=== PATIENT | female | born 2000 | race Caucasian/White ===

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

== ENCOUNTER 2020-01-12 10:39 | Outpatient (CLI) | payer BC, SELFPAY ==
--- NOTE | ~2020-01-12 | MR_ITS ---
EXAMINATION: MR knee RT wo con DATE: 01/12/2020 11:43 INDICATION: Right knee pain. TECHNIQUE: Magnetic resonance imaging (MRI) of the right knee was performed without intravenous contr ast. Sequences included axial PD-weighted FS FSE, coronal PD-weighted FSE and PD-weighted FS FSE, sag ittal PD-weighted FSE, and sagittal T2-weighted FS FSE. COMPARISON: Right knee radiographs 01/10/2020 FINDINGS: Medial compartment: Medial meniscus is normal. There is shallow partial-thickness cartilage loss of femoral condyle invol ving the central articular surface. There is cartilage surface irregularity of tibial condyle. Lateral compartment: Lateral meniscus is normal. Lateral compartment cartilage is normal. Patellofemoral compartment: There is deep cartilage fissuring of patellar medial facet. There is cartilage surface irregularity o f patellar lateral facet. There is cartilage surface irregularity of central trochlea. Ligaments and tendons: Anterior and posterior cruciate ligaments are normal. Medial collateral ligament and lateral collater al ligament complex are normal. The patellar tendon is normal. Fluid: There is no knee joint effusion. IMPRESSION: 1. Mild chondrosis of medial and patellofemoral compartments. Reviewed, dictated and finalized at location A.
== END 2020-01-12 10:40 | disposition home or self-care (01) ==
PROVIDERS: PCP Family Medicine; Visit Provider Nurse Practitioner Family
DX: M25.561 Pain in right knee (principal)
CPT/HCPCS: 73721

== ENCOUNTER 2020-09-28 13:45 | Outpatient (CLI) | payer BC, SELFPAY ==
[2020-09-28 14:31] LABS: Basophils Absolute Auto 0.1 K/mm3 (0.0-0.1); Basophils Percent Auto 0.6 % (0.2-1.2); Eosinophils Absolute Auto 0.1 K/mm3 (0-0.3); Eosinophils Percent Auto 1.2 % (0-4.4); Hemoglobin 11.4 g/dL (12.0-15.0); Immature Granulocyte Absolute 0.04 K/mm3 (0.00-0.031); Immature Granulocyte Percent A 0.4 % (0-0.5); Lymphocytes Absolute Auto 2.84 K/mm3 (0.9-3.2); Lymphocytes Percent Auto 27.2 % (18.3-44.2); Mean Corpuscular Hemoglobin 22.9 pg (26-34); Mean Corpuscular Volume 76.5 fl (80-100); Mean Platelet Volume 10.2 fl (7.4-10.4); Monocytes Absolute Auto 0.6 K/mm3 (0.1-0.6); Neutrophils Absolute Auto 6.7 K/mm3 (1.3-6.7); Neutrophils Percent Auto 64.6 % (45.5-73.1); Platelet Count Result 533 k/mm3 (150-375); Red Blood Count 4.97 M/mm3 (4.2-5.4); Red Cell Distribution Width 15.8 % (11.5-14.5); White Blood Count 10.4 K/mm3 (4.5-10.0)
[2020-09-28 14:32] LABS: Alanine Aminotransferase 23 U/L (4-35); Albumin Level 4.7 g/dL (3.5-5.1); Alkaline Phosphatase 94 U/L (38-126); Anion Gap 11 mmol/L (8-16); Aspartate Amino Transferase 28 U/L (14-36); Bilirubin,Total 0.3 mg/dL (0.2-1.3); Blood Urea Nitrogen 6 mg/dL (7-17); Calcium 9.5 mg/dL (8.4-10.2); Carbon Dioxide 26 mmol/L (22-30); Chloride 103 mmol/L (98-107); Estimated Glomerular Filt Rate > 60; Glucose 96 mg/dL (65-105); Potassium 4.1 mmol/L (3.4-5.0); Sodium 140 mmol/L (137-145)
[2020-09-28 14:39] LABS: Hemoglobin A1C 5.4 % (<5.7)
[2020-09-28 16:07] LABS: Erythrocyte Sedimentation Rate 22 mm/hr (0-20)
[2020-10-03 13:01] LABS: ANA Cascade Screen Negative (Negative)
== END 2020-09-28 13:46 | disposition home or self-care (01) ==
LOC: ANHLAB 13:48
PROVIDERS: PCP Family Medicine; Visit Provider Family Medicine
DX: M25.469 Effusion, unspecified knee (principal); R63.5 Abnormal weight gain
CPT/HCPCS: 36415; 80053; 83036; 84443; 84550; 85025; 85652; 86038

== ENCOUNTER 2020-10-09 11:44 | Outpatient (CLI) | payer BC, SELFPAY ==
[2020-10-09 12:12] LABS: Basophils Percent Auto 0.4 % (0.2-1.2); Eosinophils Absolute Auto 0.1 K/mm3 (0-0.3); Eosinophils Percent Auto 0.9 % (0-4.4); Hematocrit 36.2 % (37.0-47.0); Immature Granulocyte Absolute 0.04 K/mm3 (0.00-0.031); Immature Granulocyte Percent A 0.4 % (0-0.5); Lymphocytes Percent Auto 25.4 % (18.3-44.2); Mean Corpuscular HGB Conc 30.4 g/dl (32-36); Mean Corpuscular Volume 75.7 fl (80-100); Mean Platelet Volume 10.3 fl (7.4-10.4); Monocytes Absolute Auto 0.6 K/mm3 (0.1-0.6); Monocytes Percent Auto 6.8 % (2.6-8.5); Neutrophils Percent Auto 66.1 % (45.5-73.1); Platelet Count Result 433 k/mm3 (150-375); Red Blood Count 4.78 M/mm3 (4.2-5.4); Red Cell Distribution Width 15.7 % (11.5-14.5); White Blood Count 9.1 K/mm3 (4.5-10.0)
== END 2020-10-09 11:45 | disposition home or self-care (01) ==
PROVIDERS: PCP Family Medicine; Visit Provider Physician Assistant
DX: D72.829 Elevated white blood cell count, unspecified (principal)
CPT/HCPCS: 36415; 85025

== ENCOUNTER 2020-11-21 11:35 | Outpatient (CLI) | payer BC, SELFPAY ==
--- NOTE | ~2020-11-21 | XR_ITS ---
XR hip LT 2V w AP pelvis DATE: 11/21/2020 12:06 INDICATION: Left hip pain TECHNIQUE: AP pelvis. AP and lateral views of left hip. COMPARISON: 09/09/2015 left hip FINDINGS: No pelvic fracture or bone destruction. Normal alignment at the pubic symphysis and sacral iliac joints. Hip joint spaces appear symmetric and well preserved. No fracture, dislocation, avascular necrosis or bone destruction of the left hip. IMPRESSION: Negative Reviewed, dictated and finalized at location B. IMPRESSION: Negative
--- NOTE | ~2020-11-21 | XR_ITS ---
XR femur LT min 2V DATE: 11/21/2020 12:07 INDICATION: Left leg pain TECHNIQUE: AP and lateral views of the left femur COMPARISON: None FINDINGS: No fracture or dislocation, periosteal reaction or bone destruction. Normal alignment at th e hip and knee joints. IMPRESSION: Negative examination Reviewed, dictated and finalized at location B. IMPRESSION: Negative examination
== END 2020-11-21 11:36 | disposition home or self-care (01) ==
LOC: ANHIMG 11:36
PROVIDERS: PCP Family Medicine; Visit Provider Family Medicine
DX: M89.8X5 Other specified disorders of bone, thigh (principal)
CPT/HCPCS: 73502; 73552

== ENCOUNTER 2021-05-18 14:08 | Emergency (ER) | payer BC, SELFPAY ==
--- NOTE | ~2021-05-18 | XR_ITS ---
XR foot RT min 3V DATE: 05/18/2021 14:25 INDICATION: Fifth metatarsal pain beginning last evening after running TECHNIQUE: 4 views COMPARISON: None FINDINGS: No fracture or dislocation, periosteal reaction or bone destruction. Incorporated os tibiale externum, normal variant. IMPRESSION: No fracture Reviewed, dictated and finalized at location A. SHOW ENTERTAINER IMPRESSION: No fracture
[2021-05-18 14:14] VITALS: BP 134/83; PULSE 67; RESP 12; TEMP 36.7; O2SAT 100
--- NOTE | 2021-05-18 14:33 | ED.GENADULT ---
HPI - General Adult General Chief complaint: Extremity Injury, Lower Stated complaint: rt foot inj Source: patient Mode of arrival: ambulatory Limitations: no limitations History of Present Illness HPI narrative: Pt presents for evaluation of right foot pain. Symptom onset yesterday. She started exercising again about one week ago after she got a treadmill. She has been running on a daily basis. She reports pain on the lateral aspect of her foot. Pain is constant, 5/10, without descriptive quality. Pain is worse with weight bearing and palpation. She took ibuprofen last night for her symptoms. She went to sleep so she is not certain whether it was effective. No paresthesias. No other concerns. Related Data Allergies Allergy/AdvReac Type Severity Reaction Status Date / Time lactose Allergy Unknown Diarrhea Verified 05/18/21 14:13 Review of Systems Review of Systems: CONSTITUTIONAL: Denies fever, chills, or sweats. EYES: Denies visual changes, redness, or discharge. ENT: Denies rhinorrhea, congestion, sore throat, or otalgia. CARDIOVASCULAR: Denies chest pain, palpitations, or edema. RESPIRATORY: Denies cough or dyspnea. GASTROINTESTINAL: Denies abdominal pain, nausea, vomiting, or diarrhea. GENITOURINARY: Denies dysuria or hematuria. SKIN: Denies rash or itching. MUSCULOSKELETAL: Reports right foot pain. Denies pain otherwise. NEUROLOGIC: Denies headache, numbness, dizziness, or weakness. PSYCHIATRIC: Denies anxiety or depression. [facility] [place] Past Medical History Medical History Anxiety and depression Chondromalacia Right knee injury Seasonal allergies Surgical History Surgical History History of elbow surgery tennis elbow Family History Family History Mother Patient's mother is in good health Sibling Patient's sister is in good health Patient's brother is in good health Father Diabetes mellitus Hypertension Other Heart disease Malignant neoplasm Social History Social History Social History: Single Smoking status: Never smoker Second hand tobacco smoke exposure: No Alcohol intake: never Substance use: never Substance use type: does not use Gender identity (if verbalized by the patient): Female Sexual Orientation (if Verbalized by the Patient): Straight or Heterosexual Exam Narrative: GENERAL: Well-appearing, well-nourished, and in no acute distress. HEAD: Normocephalic, atraumatic. EYES: PERRLA and EOMI. ENT: Nares clear, no rhinorrhea or epistaxis. Mucous membranes moist. Oropharynx without tonsillar hypertrophy exudate or other lesions. Bilateral TMs pearly fregoso nonbulging NECK: Supple. No adenopathy or masses. No carotid bruits or JVD CHEST: Clear to auscultation. No respiratory distress. No wheezes rales or rhonchi HEART: Regular rate and rhythm. No murmur heard. Normal peripheral pulses. ABDOMEN: Soft, nontender, nondistended, normal active bowel sounds. EXTREMITIES:Tenderness over 5th metatarsal of right foot without any significant swelling. Normal range of motion. SKIN: Warm, dry, no rash. NEURO: No focal deficits. Alert and oriented x3. PSYCH: Normal mood and affect. Course Course Emergency Course: This is a 21-year-old female who presented with right foot pain. X ray was negative for fracture. Advised on RICE therapy. She should follow up to ensure interval improvement in her symptoms. If symptoms persist, CT is possibility to ensure no occult fracture. Offered analgesics upon discharge which she declined. Provided with post-op shoe. She should return for worsening symptoms. Patient agreed with plan of care. Level of Care: Express Care Visit Vital Signs Vital signs: Vital Signs Temperature 36.7 C 05/18/21 14:14
== END 2021-05-18 14:48 | disposition home or self-care (01) ==
PROVIDERS: Emergency Provider Nurse Practitioner; PCP Family Medicine
DX: S90.31XA Contusion of right foot, initial encounter (principal); X58.XXXA Exposure to other specified factors, initial encounter; F41.9 Anxiety disorder, unspecified; F32.9 Major depressive disorder, single episode, unspecified
CPT/HCPCS: 73630; 99213; G0463

== ENCOUNTER 2022-02-20 14:20 | Emergency (ER) | payer BC, SELFPAY ==
--- NOTE | ~2022-02-20 | XR_ITS ---
EXAMINATION: XR hand RT min 3V DATE: 02/20/2022 14:40 INDICATION: Pain at the fifth metacarpal 4 weeks post dogbite TECHNIQUE: Posteroanterior, oblique and lateral views of the right hand were obtained. COMPARISON: None. FINDINGS: Alignment is normal. No fracture. Joint spaces are normal. No cortical erosions or periosteal reactio n. No radiopaque foreign bodies. Soft tissues are unremarkable. IMPRESSION: 1. Negative right hand radiographs. Reviewed, dictated and finalized at location B.
[2022-02-20 14:30] VITALS: BP 162/87; PULSE 80; RESP 16; TEMP 37.1; O2SAT 100
[2022-02-20 14:32] VITALS: BP 162/87; PULSE 80; RESP 16; TEMP 37.1; O2SAT 100
--- NOTE | 2022-02-20 15:08 | ED.UPPEXIN ---
HPI - Extremity Injury (Upper) General Chief Complaint: Extremity Injury, Upper Stated Complaint: injury to right hand Time Seen by Provider: 02/20/22 15:03 Source: patient Mode of arrival: ambulatory Limitations: no limitations History of Present Illness HPI narrative: Patient presents today with an injury to her right hand. States her dog bit her hand 4 weeks ago over the 5th metacarpal and she has been having pain ever since. It never broke the skin. Denies numbness or tingling in the hand or fingers. She currently rates her pain 5/10 and has been taking ibuprofen without relief. Related Data Allergies Allergy/AdvReac Type Severity Reaction Status Date / Time lactose Allergy Unknown Diarrhea Verified 02/20/22 14:31 Review of Systems Review of Systems: CONSTITUTIONAL: Denies body aches, fever, chills, or sweats. EYES: Denies visual changes, redness, or discharge. ENT: Denies rhinorrhea, congestion, sore throat, or otalgia. CARDIOVASCULAR: Denies chest pain, palpitations, or edema. RESPIRATORY: Denies cough or dyspnea. GASTROINTESTINAL: Denies abdominal pain, nausea, vomiting, or diarrhea. GENITOURINARY: Denies dysuria or hematuria. SKIN: Denies rash, itching, or wounds. MUSCULOSKELETAL: Denies back pain, or myalgia.+ Right hand injury NEUROLOGIC: Denies headache, numbness, tingling, or weakness. PSYCH: Denies depression or anxiety. [facility] Past Medical History Medical History Anxiety and depression Chondromalacia Right knee injury Seasonal allergies Surgical History Surgical History History of elbow surgery tennis elbow Family History Family History Mother Patient's mother is in good health Sibling Patient's sister is in good health Patient's brother is in good health Father Diabetes mellitus Hypertension Other Heart disease Malignant neoplasm Social History Social History Social History: Single Smoking status: Never smoker Second hand tobacco smoke exposure: No Alcohol intake: never Substance use: never Substance use type: does not use Gender identity (if verbalized by the patient): Female Sexual Orientation (if Verbalized by the Patient): Straight or Heterosexual Comments At time of signature, I have reviewed and agree with nursing past medical, surgical, social and family history unless otherwise noted. Please see nursing chart for further information. There is no relevant family history pertinent to the presenting complaint Exam Narrative: GENERAL: Well-appearing, well-nourished, and in no acute distress. HEAD: Normocephalic, atraumatic. EYES: EOMI. No redness or drainage. Conjunctivae normal. ENT: Mucous membranes pink and moist. NECK: Normal AROM. CHEST: No respiratory distress. EXTREMITIES: right hand: Tenderness over the right MCP extending to the right metacarpal. No edema, ecchymosis, or erythema noted. Distal sensation intact. Capillary refill normal. Full range of motion of the 5th finger with increased pain in the MCP. Pain in the metacarpal with flexion of the wrist. SKIN: Warm, dry, no rash. Capillary refill normal. Normal skin turgor. NEURO: No focal deficits. Alert and oriented x3. Gait steady. PSYCH: Normal affect. No signs of depression or anxiety. Course Course Level of Care: Express Care Visit Vital Signs Vital signs: Vital Signs Temperature 98.8 F 02/20/22 14:30 Pulse Rate 80 02/20/22 14:30 Respiratory Rate 16 02/20/22 14:30 Blood Pressure 162/87 H 02/20/22 14:30 Pulse Oximetry 100 02/20/22 14:30 Temperature 98.8 F 02/20/22 14:32 Pulse Rate 80 02/20/22 14:32 Respiratory Rate 16 02/20/22 14:32 Blood Pressure 162/87 H 02/20/22 14:32 Pulse Oximetry 100
== END 2022-02-20 15:16 | disposition home or self-care (01) ==
PROVIDERS: Emergency Provider Nurse Practitioner; PCP Family Medicine
DX: S69.91XA Unspecified injury of right wrist, hand and finger(s), initial encounter (principal); W54.0XXA Bitten by dog, initial encounter
CPT/HCPCS: 73130; 99213; G0463

== ENCOUNTER 2022-10-02 09:45 | Outpatient (CLI) | payer BC, SELFPAY ==
[2022-10-02 10:18] LABS: Basophils Absolute Auto 0.1 K/mm3 (0.0-0.1); Basophils Percent Auto 0.7 % (0.2-1.2); Eosinophils Absolute Auto 0.2 K/mm3 (0-0.3); Eosinophils Percent Auto 1.6 % (0-4.4); Hematocrit 38.2 % (37.0-47.0); Immature Granulocyte Absolute 0.07 K/mm3 (0.00-0.031); Immature Granulocyte Percent A 0.7 % (0-0.5); Lymphocytes Absolute Auto 2.23 K/mm3 (0.9-3.2); Lymphocytes Percent Auto 23.2 % (18.3-44.2); Mean Corpuscular HGB Conc 31.4 g/dl (32-36); Mean Corpuscular Hemoglobin 25.9 pg (26-34); Mean Corpuscular Volume 82.5 fl (80-100); Mean Platelet Volume 10.5 fl (7.4-10.4); Monocytes Absolute Auto 0.6 K/mm3 (0.1-0.6); Monocytes Percent Auto 5.7 % (2.6-8.5); Neutrophils Absolute Auto 6.5 K/mm3 (1.3-6.7); Neutrophils Percent Auto 68.1 % (45.5-73.1); Platelet Count Result 413 k/mm3 (150-375); Red Blood Count 4.63 M/mm3 (4.2-5.4); Red Cell Distribution Width 14.4 % (11.5-14.5); White Blood Count 9.6 K/mm3 (4.5-10.0)
[2022-10-06 11:01] LABS: DHEA-Sulfate 237 mcg/dL (18-391)
[2022-10-08 12:11] LABS: Testosterone Free 4.3 pg/mL (0.1-6.4); Testosterone Total 25 ng/dL (2-45)
[2022-10-08 14:51] LABS: FSH 8.5 mIU/mL (***); Progesterone 7.1 ng/mL (***); Prolactin 18.8 ng/mL (***)
[2022-10-11 22:06] LABS: Estradiol, Ultrasensitive 94 pg/mL
== END 2022-10-02 09:46 | disposition home or self-care (01) ==
PROVIDERS: PCP Family Medicine; Visit Provider Obstetrics & Gynecology
DX: N92.0 Excessive and frequent menstruation with regular cycle (principal); D64.9 Anemia, unspecified
CPT/HCPCS: 36415; 82627; 82670; 83001; 83498; 84144; 84146; 84402; 84403; 85025

== ENCOUNTER 2023-03-15 14:15 | Emergency (ER) | payer OTHER, SELFPAY ==
[2023-03-15 14:23] VITALS: BP 142/72; PULSE 111; RESP 16; TEMP 37.1; O2SAT 100
--- NOTE | 2023-03-15 14:32 | ED.GENADULT ---
HPI - General Adult General Chief complaint: Upper Respiratory Infection Stated complaint: Sore Throat Time Seen by Provider: 03/15/23 14:31 Source: patient, RN notes reviewed and old records reviewed Mode of arrival: ambulatory Limitations: no limitations History of Present Illness HPI narrative: 22-year-old female presents to [facility] with complaint of sore throat that started yesterday. Patient denies fever, cough, congestion, or myalgias. Patient is not taking anything for symptoms. Related Data Home Medications Medication Instructions Recorded Confirmed norgestimate 0.18 mg/0.215 mg/0.25 1 tablet PO DAILY 03/15/23 03/15/23 mg-ethinyl estradiol 25 mcg tablet ([id number]) Allergies Allergy/AdvReac Type Severity Reaction Status Date / Time lactose Allergy Unknown Diarrhea Verified 03/15/23 14:23 Review of Systems Review of Systems: All systems reviewed & are unremarkable except as noted in HPI and below Constitutional: Constitutional: Reports no additional constitutional complaints Eyes: Eyes: Reports no additional eye complaints ENT: Reports system reviewed and no additional complaints, except as documented and Reports sore throat Cardiovascular: Cardiovascular: Reports no additional cardiovascular complaints Respiratory: Respiratory: Reports no additional respiratory complaints Neurologic: Reports system reviewed and no additional complaints, except as documented [facility] Past Medical History Medical History Anxiety and depression Chondromalacia Right knee injury Seasonal allergies Surgical History Surgical History History of elbow surgery tennis elbow Family History Family History Mother Patient's mother is in good health Sibling Patient's sister is in good health Patient's brother is in good health Father Diabetes mellitus Hypertension Other Heart disease Malignant neoplasm Social History Social History Social History: Single Smoking status: Never smoker Second hand tobacco smoke exposure: No Alcohol intake: current Alcohol use details: socially Substance use: never Substance use type: does not use Lack of Transportation: No Lack of Food: Never True Current Housing: I Have Housing Concerned About Future Housing: No Difficulty Paying Gas/Electric Bills: No Difficulty Paying for Meds: No Currently Unemployed: No Education: Bachelor's Degree Living arrangements: with family Occupation/Education: student Gender identity (if verbalized by the patient): Female Sexual Orientation (if Verbalized by the Patient): Straight or Heterosexual Comments At the time of my signature, I reviewed and agree with the nursing past medical, surgical, social, and family history. There is no relevant family history pertinent to the patient complaint. Exam Const: General: cooperative, healthy appearing, no acute distress and well nourished Nutritional Appearance: well nourished Orientation/consciousness: patient oriented x3 Limitations: no limitations HENMT: Head: normal to inspection and normocephalic Ears: external ears normal, TM's normal bilaterally, mastoids normal and Abnormal EAC present Face/Nose/Sinus: normal facial exam Face and sinus: normal facial exam Mouth: Yes Normal oral and palatal mucosa present, Yes oropharynx normal and Yes moist mucous membranes Throat: uvula midline, abnormal tonsil and no uvular edema Other: Positive erythema, positive exudate, tonsils 2+ Eyes: General: appearance normal, both eyes and all related structures Sclera: sclerae normal Pupils: Equal, round and reactive pupils present Neck: Lymphatic: lymphadenopathy Resp: Effort & Inspection: normal respiratory effort, able to
== END 2023-03-15 15:00 | disposition home or self-care (01) ==
PROVIDERS: Emergency Provider Registered Nurse; PCP Family Medicine
DX: J02.9 Acute pharyngitis, unspecified (principal)
CPT/HCPCS: 36416; 86308; 87081; 87880; 99213; G0463